=== PATIENT | male | born 1960 | race Caucasian/White ===

== ENCOUNTER 2022-09-08 10:56 | Emergency (ER) | payer OTHER | END 2022-09-08 13:08 | disposition home or self-care (01) | LOC: EDBD 10:56 → JD.ED 10:56 | DX: G40.909 Epilepsy, unspecified, not intractable, without status epilepticus (principal); I25.10 Atherosclerotic heart disease of native coronary artery without angina pectoris; I10 Essential (primary) hypertension; I25.2 Old myocardial infarction; F17.210 Nicotine dependence, cigarettes, uncomplicated; Z88.1 Allergy status to other antibiotic agents; Z95.5 Presence of coronary angioplasty implant and graft | CPT/HCPCS: 99283; 99284 ==